=== PATIENT | female | born 1995 | race Hispanic/Latino ===

== ENCOUNTER 2020-03-28 09:04 | Day surgery (SDC) | payer MEDICAID, OTHER ==
[2020-03-28 09:52] VITALS: BMI 30.4
--- NOTE | 2020-03-28 10:52 | PDOC.FPROB ---
FMR OB H&P: HPI - History of Present Illness Chief Complaint: contractions History of Present Illness: Pt is a 25 yo F at 39.2 wga by a LMP/35 wk sono who presents complaining of contractions. As per patient, contractions started around 2300 last night and were about 3-4 minutes apart. Now she states they are 10-15 minutes apart and feel like cramps. She also endorses a very small amount of vaginal bleeding she noticed when she went to wipe this morning. She endorses good movement, no vaginal discharge, no dysuria. 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 - Surgical History Sx History: denies - Social History Social History: denies tobacco, alcohol or drug use - Family History Family History: denies FMR OB H&P: Medications - Current Home Medications: Medication Instructions Recorded Confirmed Type Vit,Calc76/Iron/Folic 1 tab PO DAILY 03/28/20 03/28/20 History [Prenatabs Rx Tablet] Allergies/Adverse Reactions: Allergies Allergy/AdvReac Type Severity Reaction Status Date / Time No Known Allergies Allergy Unverified 03/28/20 09:53 FMR OB H&P: ROS - Review of Systems General: denies: fever/chills Eyes: denies: vision changes Cardiovascular: denies: chest pain Respiratory: denies: cough, shortness of breath Gastrointestinal: denies: vomiting Genitourinary (Female): reports: vaginal bleeding, contractions. denies: vaginal discharge, vaginal pressure Neurologic: denies: weakness, headache FMR OB H&P: Vital Signs - Maternal Vital signs: BP: 108/78 - Heart Tones Baseline: 130 Variability: moderate Acceleration: present Deceleration: absent Category: category 1 [place] contractions every: irregular FMR OB H&P: Physical Exam - Physical Exam General: NAD, awake, alert and oriented HEENT: normocephalic and atraumatic, EOMI, MMM Neck: supple Heart: RRR, normal S1/S2 General: CTAB, no respiratory distress Abdomen: soft, gravid Neurological: no clonus, no focal deficit Skin: no rash, good tugor Psychiatric: intact recent and remote memory, good judgement and insight, normal mood and affect - Pelvic Exam SVE: Membranes: intact FMR OB H&P: A/P Disposition: Pt is a 25 yo F at 39.2 wga by a LMP/35 wk sono who presents complaining of contractions 1. Contractions -patient endorsing "cramping"/ctx q 10-15 min, resting comfortably -irregular contractions on toco -cat 1 strip 130 baseline with moderate variability and no decels -cervical check 2. Vaginal bleeding -patient complained of a small amount of vaginal blood after wiping earlier this morning -scant amount of blood after cervical check noted -likely 2/2 cervical change 3. Late to care -aware -poor dating by 35 wk sono -patient scheduled for post date IOL on 04/12/20 4. Anemia of -aware At this time, patient is not regularly jayson and is comfortable. Given this fact and her being a G1, will send home with labor precautions given. Return to L&D if contractions increase in intensity to where it hurts to walk and talk and occur every 3-5 minutes for an hour, if water breaks, you detect decreased movement or if vaginal bleeding increases. Discussion: Date/Time: 03/28/20 105 This H&P was discussed with Dr. Luevano and Dr. Burdick who agree with the above documentation and plan. Addendum - Attending - Attending Attestation Date/Time: 03/28/20 1255 I personally evaluated the patient and discussed the management with Dr. Fagan. I agree with the History, Examination, Assessment and Plan documented above.
== END 2020-03-28 10:45 | disposition home health service (06) ==
LOC: L&D/OP 09:04
PROVIDERS: ATTEND Obstetrics & Gynecology
DX: O47.1 False labor at or after 37 completed weeks of gestation (principal); O46.93 Antepartum hemorrhage, unspecified, third trimester; O99.013 Anemia complicating pregnancy, third trimester; D64.9 Anemia, unspecified; O09.33 Supervision of pregnancy with insufficient antenatal care, third trimester; Z3A.39 39 weeks gestation of pregnancy
CPT/HCPCS: 99283

== ENCOUNTER 2020-04-07 10:32 | Inpatient (IN) | payer MEDICAID, SELFPAY ==
[2020-04-07 11:23] VITALS: BMI 25.5
[2020-04-07] MEDS ORDERED: hydrALAZINE 20 MG/ML VIAL SLOW IVP PRN (12:07)
--- NOTE | 2020-04-07 12:19 | PDOC.FPROB ---
FMR OB H&P: HPI - History of Present Illness Chief Complaint: decreased movement History of Present Illness: 25 y/o at 40.5 wks by LMP/35.0 wk sono presenting for decreased movement. Reports decreased movement since last night, feeling baby move approximately every 2 hours. Reports she was seen at [facility] this AM and told to come in if symptoms persisted. She denies any LOF, vaginal bleeding, contractions. Endorses some clear/mucus discharge from the vagina which is usual for her. She has been eating and drinking normally. Denies malaise, fever, chills, dysuria, urinary frequency. has been complicated by late to care at 33 wks. She takes PNV, no other medications, and denies any other complications with this . She did have SVE today and reports she was dilated to 2 cm, unsure of rest of check and C records not yet sent. 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 - Surgical History Sx History: denies previous surgeries - Social History Social History: denies etoh, tobacco, drug use - Family History Family History: denies any family history including htn, dm, autism, down syndrome FMR OB H&P: Medications - Current Home Medications: Medication Instructions Recorded Confirmed Type Vit,Calc76/Iron/Folic 1 tab PO DAILY 03/28/20 03/28/20 History [Prenatabs Rx Tablet] Allergies/Adverse Reactions: Allergies Allergy/AdvReac Type Severity Reaction Status Date / Time No Known Allergies Allergy Unverified 04/07/20 11:22 FMR OB H&P: ROS - Review of Systems General: denies: fever/chills, weight/appetite/sleep changes, fatigue Eyes: denies: vision changes, scotomas ENT: denies: nasal congestion, rhinorrhea, sore throat Cardiovascular: denies: chest pain, palpitation, edema Respiratory: denies: cough, congestion, shortness of breath Gastrointestinal: denies: abdominal pain, nausea, vomiting, diarrhea, constipation Genitourinary (Female): denies: dysuria, hematuria, polyuria, vaginal discharge, vaginal bleeding, contractions, vaginal pressure Musculoskeletal: denies: pain Neurologic: denies: numbness, headache Integumentary: denies: rash Endocrine: denies: polyuria Psychological: denies: depression, anxiety FMR OB H&P: Vital Signs - Maternal Vital signs: Vital Signs - First Documented Temp Pulse Resp BP Pulse Ox 98.1 F 74 18 105/74 100 04/07/20 11:33 04/07/20 11:33 04/07/20 11:33 04/07/20 11:33 04/07/20 11:33 - Heart Tones Baseline: 125 Variability: moderate Acceleration: present Deceleration: absent Category: category 1 [place] contractions every: > 10 min FMR OB H&P: Physical Exam - Physical Exam General: NAD, awake, alert and oriented HEENT: normocephalic and atraumatic, MMM, conjunctiva clear, no scleral icterus, grossly normal vision, grossly normal hearing, good dention Neck: supple, no LAD Heart: RRR, normal S1/S2, no murmurs/rubs/gallops, pulses present, no edema General: CTAB, no respiratory distress Abdomen: soft, gravid, non-tender Musculoskeletal: pulses present Neurological: sensation to pain,touch and proprioception grossly normal, DTR +2, no clonus Skin: no rash Lymphatic: no unusual bruising or bleeding Psychiatric: intact recent and remote memory, good judgement and insight, normal mood and affect - Pelvic Exam SVE: 1/0/-3 Membranes: intact Presentation: cephalic ROT FMR OB H&P: A/P Disposition: sIUP, term @ 40.5 wks 25 y/o at 40.5 wks by LMP/35 wk US - ortiz, cephalic on sono - complicated by late to care - GBS negative - SVE @ 1245 1/0/-3 Oligohydramnios With reported decreased movement. FARZANA 3.68 on bedside sono. NST reactive. - will plan to admit for induction due to oligo Anemia of Taking PNV , not on oral iron. - check H/H with induction labs Discussion: Date/Time: 04/07/20 1216 This H&P was discussed with [] and [] who agree with the above documentation and plan.
[2020-04-07] MEDS ORDERED: Lidocaine 2% MPF 10 ML AMP (For Epidural Use) ONE (12:55)
[2020-04-07] MEDS ORDERED: Bupivacaine/Epinephrine 0.25% 30 ML VIAL ONE (12:55)
[2020-04-07] MEDS ORDERED: Bupivacaine HCl 0.5%/Epinephrine 1:200,000/PF 30 ml Vial ONE (12:55)
[2020-04-07] MEDS ORDERED: Ibuprofen 800 MG TAB PO PRN (12:56)
[2020-04-07] MEDS ORDERED: Lidocaine 1% (PF) 30 ML VIAL SC PRN (12:56)
[2020-04-07] MEDS ORDERED: Butorphanol Tartrate 1 MG/ML VIAL SLOW IVP PRN (12:56)
[2020-04-07] MEDS ORDERED: Promethazine HCl 25 MG/ML VIAL IM PRN ×2 (12:56→23:26)
[2020-04-07] MEDS ORDERED: Acetaminophen 500 MG TAB PO PRN (12:56)
[2020-04-07] MEDS ORDERED: NS / Oxytocin 40 units/1000ml 1,000 ML IV PRN (12:56)
[2020-04-07 13:28] LABS: Hemoglobin 12.6 g/dL (12.0-16.0); Mean Corpuscular HGB CONC 34.5 g/dL (32.0-36.0); Mean Corpuscular Hemoglobin 30.5 pg (27.0-31.0); Mean Corpuscular Volume 88.4 fL (78.0-98.0); Mean Platelet Volume 10.7 fL (7.4-10.4); Platelet Count 153 thou/uL (130-400); RBC Distribution Width 13.3 % (11.5-14.5); Red Blood Cell (RBC) Count 4.13 mill/uL (4.20-5.40); White Blood Cell (WBC) Count 7.6 thou/uL (4.8-10.8)
--- NOTE | 2020-04-07 14:01 | PDOC.BPN ---
- Brief Progress Note Encounter Date: 04/07/20 Encounter Time: 13:00 FARZANA by bedside sono 3.68. NST reactive. SVE 1/0%/-3. Admitting for cytotec IOL for oligohydramnios. Discussed with Dr. Foss. Fabiola Abraham MD PGY3
[2020-04-07 14:07] LABS: Syphilis Antibody Nonreactive (Nonreactive); Syphilis Antibody Index 0.05 S/CO (<1.00 Non-Reactive)
[2020-04-07 14:11] LABS: Hep B Surf Ag Non-Reactive S/CO (NonReactive)
[2020-04-07] MEDS: Lactated Ringer's 1,000 ML IV SCH ×2 (15:27→21:19)
--- NOTE | 2020-04-07 16:24 | PDOC.LDPN ---
Labor & Delivery Progress Note - Subjective Subjective: comfortable - Objective Vital signs reviewed and normal: yes General: NAD, resting Uterine fundus: non tender FHT: category 1 (135 baseline, with mod variability and many acels. No decels. ) [place] contractions every: none observed - Assessment (1) Oligohydramnios Code(s): O41.00X0 - OLIGOHYDRAMNIOS, UNSP TRIMESTER, NOT APPLICABLE OR UNSP Current Visit: Yes Status: Acute (2) Term Code(s): Z34.90 - ENCNTR FOR SUPRVSN OF NORMAL , UNSP, UNSP TRIMESTER Current Visit: Yes Status: Acute Plan: labor augmentation -: 25 y/o @ 40.5 wks dated by 35 wk sono c/w LMP, admitted for mIOL for oligohydrmanios. 1. sIUP, term @ 40.5 wks - cephalic on sono - complicated by late to care and suboptimal dating. - GBS negative - SVE @ 1245 1/0/-3 - cytotec to be placed soon placed, then check Q3H, and place cytotec/start pit as appropriate 2. Oligohydramnios - With reported decreased movement on admission that has improved overtime. FARZANA 3.68 on bedside sono. NST reactive. 3. Anemia of - improved - H/H: 12.6/34.5 Dispo: stable, continue mIOL with cytotec induction.
[2020-04-07] MEDS: Misoprostol 100 MCG TAB VAG SCH ×3 (17:33→21:16)
--- NOTE | 2020-04-07 18:18 | PDOC.LDPN ---
Labor & Delivery Progress Note - Subjective Subjective: comfortable, no concerns - Objective Vital signs reviewed and normal: yes General: NAD, resting Uterine fundus: non tender SVE: 1/0/-3 Dilation: 1 Effacement: 0% Station: -3 FHT: category 1, variability present [employer] contractions every: none Plan: continue plan of care, labor augmentation -: 25 y/o @ 40.5 wks dated by 35 wk sono c/w LMP, admitted for mIOL for oligohydrmanios. 1. sIUP, term @ 40.5 wks - cephalic on sono - complicated by late to care and suboptimal dating. - GBS negative - SVE @ 1245 1/0/-3 - SVE @ 1730 /0/-3, cytotec placed, cat 1 - next check 2029 2. Oligohydramnios - With reported decreased movement on admission that has improved overtime. FARZANA 3.68 on bedside sono. NST reactive. 3. Anemia of - improved - H/H: 12.6/34.5 Dispo: stable, continue mIOL with cytotec induction.
--- NOTE | 2020-04-07 21:17 | PDOC.LDPN ---
Labor & Delivery Progress Note - Subjective Subjective: comfortable - Objective Vital signs reviewed and normal: yes General: NAD, resting SVE: /-1 Dilation: 1 Effacement: 75% Station: -1 FHT: category 1, variability present [place] contractions every: 5-6 minutes Plan: continue plan of care, labor augmentation -: 25 y/o @ 40.5 wks dated by 35 wk sono c/w LMP, admitted for mIOL for oligohydrmanios. 1. sIUP, term @ 40.5 wks - cephalic on sono - complicated by late to care and suboptimal dating. - GBS negative - SVE @ 1245 1/0/-3 - SVE @ 1730 /0/-3, cytotec placed, cat 1 - SVE @ 2110 /-1, cytotec #2 placed, cat 1 - next check at 0015 2. Oligohydramnios - With reported decreased movement on admission that has improved overtime. FARZANA 3.68 on bedside sono. NST reactive. 3. Anemia of - improved - H/H: 12.6/34.5 Dispo: stable, continue mIOL with cytotec induction.
[2020-04-07] MEDS ORDERED: Fentanyl 4 mcg/Bup 0.1% Cadd 100 ML ONE (22:47)
[2020-04-07] MEDS ORDERED: diphenhydrAMINE 50 MG/ML VIAL IVP PRN (23:26)
[2020-04-07] MEDS ORDERED: EPHEDRINE 25 MG/5 ML SYRINGE SLOW IVP PRN (23:26)
[2020-04-07] MEDS ORDERED: Acetaminophen 325 MG TAB PO PRN (23:26)
[2020-04-07] MEDS ORDERED: Naloxone HCl 0.4 mg/ml Vial IVP PRN ×2 (23:26)
[2020-04-07] MEDS ORDERED: Ondansetron PF 4 MG/2 ML Vial IVP PRN (23:26)
[2020-04-07] MEDS ORDERED: Lactated Ringer's 500 ML IV PRN (23:26)
[2020-04-07] MEDS ORDERED: Communication Order-Pharmacy FS SCH (23:30)
--- NOTE | 2020-04-08 00:19 | PDOC.LDPN ---
Labor & Delivery Progress Note - Subjective Subjective: comfortable - Objective Vital signs reviewed and normal: yes General: NAD, resting SVE: 80/-1 Dilation: 2 Effacement: 75% Station: -1 FHT: category 1, variability present [place] contractions every: 1-2 minutes Plan: continue plan of care, labor augmentation -: 25 y/o @ 40.6 wks dated by 35 wk sono c/w LMP, admitted for mIOL for oligohydrmanios. 1. sIUP, term @ 40.5 wks - cephalic on sono - complicated by late to care and suboptimal dating. - GBS negative - SVE @ 1245 1/0/-3 - SVE @ 1730 1/0/-3, cytotec placed, cat 1 - SVE @ 2110 80/-1, cytotec #2 placed, cat 1 - SVE @ midnight 80/-1, cat 1, contractions 1-2 min - next check at 0230 2. Oligohydramnios - With reported decreased movement on admission that has improved overtime. FARZANA 3.68 on bedside sono. NST reactive. 3. Anemia of - improved - H/H: 12.6/34.5 Dispo: stable, continue mIOL
--- NOTE | 2020-04-08 02:43 | PDOC.LDPN ---
Labor & Delivery Progress Note - Subjective Subjective: comfortable - Objective Vital signs reviewed and normal: yes General: NAD, resting Uterine fundus: non tender SVE: /-1 Dilation: 3 Effacement: 90% Station: -1 FHT: category 1, variable decelerations, variability present [place] contractions every: 1-2 minutes Plan: continue plan of care -: 25 y/o @ 40.6 wks dated by 35 wk sono c/w LMP, admitted for mIOL for oligohydrmanios. 1. sIUP, term @ 40.5 wks - cephalic on sono - complicated by late to care and suboptimal dating. - GBS negative - SVE @ 1245 1/0/-3 - SVE @ 1730 1/0/-3, cytotec placed, cat 1 - SVE @ 2110 80/-1, cytotec #2 placed, cat 1 - SVE @ midnight 80/-1, cat 1, contractions 1-2 min, epidural - SVE @ 0230 /-1, cat 1, contractions 1-2 min - next check at 0630 2. Oligohydramnios - With reported decreased movement on admission that has improved overtime. FARZANA 3.68 on bedside sono. NST reactive. 3. Anemia of - improved - H/H: 12.6/34.5 Dispo: stable, continue mIOL
[2020-04-08] MEDS ORDERED: Fentanyl 4 mcg/Bup 0.1% Cadd 100 ML ONE ×2 (05:43→11:15)
--- NOTE | 2020-04-08 05:45 | PDOC.LDPN ---
Labor & Delivery Progress Note - Subjective Subjective: comfortable, painful contractions, vaginal pressure - Objective Vital signs reviewed and normal: yes General: NAD, breathing through contractions SVE: /-1 Dilation: 5 Effacement: 90% Station: -1 FHT: category 1, variability present [place] contractions every: 2-4 min Procedures: epidural bolus Plan: continue plan of care -: 25 y/o @ 40.6 wks dated by 35 wk sono c/w LMP, admitted for mIOL for oligohydrmanios. 1. sIUP, term @ 40.5 wks - cephalic on sono - complicated by late to care and suboptimal dating. - GBS negative - SVE @ 1245 1/0/-3 - SVE @ 1730 /0/-3, cytotec placed, cat 1 - SVE @ 2110 /-1, cytotec #2 placed, cat 1 - SVE @ midnight /-1, cat 1, contractions 1-2 min, epidural - SVE @ 0230 /-1, cat 1, contractions 1-2 min - SVE @ 0515 /-1, cat 1, contractions 2-4 min, epidural bolus @ 0540 - next check in 2-3 hours 2. Oligohydramnios - With reported decreased movement on admission that has improved overtime. FARZANA 3.68 on bedside sono. NST reactive. 3. Anemia of - improved - H/H: 12.6/34.5 Dispo: stable, continue mIOL
[2020-04-08] MEDS: Ondansetron PF 4 MG/2 ML Vial IVP PRN ×2 (05:48→11:34)
[2020-04-08] MEDS: Fentanyl 4 mcg/Bupivacaine 0.1% Cassette 100 ML EPIDURAL SCH ×2 (05:48→11:21)
[2020-04-08] MEDS: Lactated Ringer's 1,000 ML IV SCH ×2 (05:52→10:25)
--- NOTE | 2020-04-08 07:48 | PDOC.LDPN ---
Labor & Delivery Progress Note - Subjective Subjective: comfortable - Objective Vital signs reviewed and normal: yes General: NAD SVE: 5/100/-1 FHT: category 1 AROM: clear fluid FSE placed: yes -: 25 y/o @ 40.6 wks dated by 35 wk sono c/w LMP, admitted for mIOL for oligohydrmanios. 1. sIUP, term @ 40.5 wks - cephalic on sono - complicated by late to care and suboptimal dating. - GBS negative - SVE @ 1245 1/0/-3 - SVE @ 1730 1/0/-3, cytotec placed, cat 1 - SVE @ 2110 80/-1, cytotec #2 placed, cat 1 - SVE @ midnight 80/-1, cat 1, contractions 1-2 min, epidural - SVE @ 0230 90/-1, cat 1, contractions 1-2 min - SVE @ 0515 /90/-1, cat 1, contractions 2-4 min, epidural bolus @ 0540 - SVE @ 0715 5/100/-1, AROM w/ small amt clear fluid, FSC placed - recheck in 2-3 hrs 2. Oligohydramnios - With reported decreased movement on admission that has improved overtime. FARZANA 3.68 on bedside sono. NST reactive. 3. Anemia of - improved - H/H: 12.6/34.5 Dispo: stable, continue mIOL Discussed with Dr. Foss.
--- NOTE | 2020-04-08 10:34 | PDOC.LDPN ---
Labor & Delivery Progress Note - Subjective Subjective: comfortable - Objective Vital signs reviewed and normal: yes General: NAD SVE: 9/100/+1 FHT: category 1, variability present [place] contractions every: q2-6 min -: 25 y/o @ 40.6 wks dated by 35 wk sono c/w LMP, admitted for mIOL for oligohydrmanios. 1. sIUP, term @ 40.5 wks - cephalic on sono - complicated by late to care and suboptimal dating. - GBS negative - SVE @ 1245 1/0/-3 - SVE @ 1730 1/0/-3, cytotec placed, cat 1 - SVE @ 2110 80/-1, cytotec #2 placed, cat 1 - SVE @ midnight 80/-1, cat 1, contractions 1-2 min, epidural - SVE @ 0230 90/-1, cat 1, contractions 1-2 min - SVE @ 0515 /90/-1, cat 1, contractions 2-4 min, epidural bolus @ 0540 - SVE @ 0715 5/100/-1, AROM w/ small amt clear fluid, FSC placed - was removed due to not tracing well; reattempted placement but did not stay on, tracing well through external monitors - SVE 1015 9/100/+1, ctx q2-6, now cat 1 strip 140/mod/+accels, intermittent cat 2 strip with few scattered variables and one possible decel in area of poor tracing - recheck in 2 hrs 2. Oligohydramnios - With reported decreased movement on admission that has improved overtime. FARZANA 3.68 on bedside sono. NST reactive. 3. Anemia of - improved - H/H: 12.6/34.5 Dispo: stable, continue mIOL Discussed w/ Dr. Mccullough.
--- NOTE | 2020-04-08 14:01 | PDOC.BPN ---
- Brief Progress Note Encounter Date: 04/08/20 Encounter Time: 14:[address] Mccullough is in the OR. @ 40w6d by suboptimal dates. She has progressed to c/c/+[address] FHTs cat 1, mod tracey, + accels, no decels [place] q2-4 min SVE: c/c/+1, ROP BSUS confirmed ROP Gentle attempt at manual rotation of obtaining verbal consent from patient (photo tube assembler offered and encouraged but declined), which was unsuccessful. Can try hands-knees for short period, then resume pushing. If no significant progress attempt manual rotation again after bolusing epidural as she had discomfort during first attempt.
[2020-04-08 14:52] LABS: SARS-CoV-2 MS2 Positive; SARS-CoV-2 N Gene Negative; SARS-CoV-2 S Gene Negative; SARS-CoV-2 by NAA Not Detected (NotDetected); SARS-CoV-2 orf1ab Negative
--- NOTE | 2020-04-08 15:24 | PDOC.LDPN ---
Labor & Delivery Progress Note - Subjective Subjective: painful contractions - Objective Vital signs reviewed and normal: yes General: breathing through contractions SVE: 10/100/+1 FHT: category 2, variable decelerations -: 25 y/o @ 40.6 wks dated by 35 wk sono c/w LMP, admitted for mIOL for oligohydrmanios. 1. sIUP, term @ 40.5 wks - cephalic on sono - complicated by late to care and suboptimal dating. - GBS negative - SVE @ 1245 1/0/-3 - SVE @ 1730 1/0/-3, cytotec placed, cat 1 - SVE @ 2110 80/-1, cytotec #2 placed, cat 1 - SVE @ midnight /-1, cat 1, contractions 1-2 min, epidural - SVE @ 0230 90/-1, cat 1, contractions 1-2 min - SVE @ 0515 /90/-1, cat 1, contractions 2-4 min, epidural bolus @ 0540 - SVE @ 0715 5/100/-1, AROM w/ small amt clear fluid, FSE placed - was removed due to not tracing well; reattempted placement but did not stay on, tracing well through external monitors - SVE 1015 9/100/+1, ctx q2-6, now cat 1 strip 140/mod/+accels, intermittent cat 2 strip with few scattered variables and one possible decel in area of poor - 10/100/+1 since 1200, pushing started 1415, intermittently cat 2 140/mod with one period of 3 variables over 10 min with pushes - continue monitoring, continue pushing, consider further attempts to rotate baby as ROP on US earlier and not progressing 2. Oligohydramnios - With reported decreased movement on admission that has improved overtime. FARZANA 3.68 on bedside sono. NST reactive. 3. Anemia of - improved - H/H: 12.6/34.5
[2020-04-08] MEDS ORDERED: Azithromycin 500 MG VIAL ONE ×2 (16:51→17:06)
[2020-04-08] MEDS ORDERED: Bicitra 30 ML UDCUP ONE (16:52)
--- NOTE | 2020-04-08 16:52 | PDOC.LDPN ---
Labor & Delivery Progress Note - Subjective Subjective: painful contractions, vaginal pressure - Objective Vital signs reviewed and normal: yes General: NAD Uterine fundus: non tender Dilation: 10 Effacement: 100% Station: 0 FHT: category 2 (moderate variability, occasional variable decelerations. ) [place] contractions every: 2-3 min Plan: other -: Patient has been complete since 12:00 today. Has been pushing with good effort for the past 3 hours. We discussed risks and benefits of continuing current plan of labor and the possible need for section. The patient considered her options and states that she is too fatigued to continue pushing. She elected to go back for section due to failure to progress despite adequate effort. She understands the risks and benefits of section and wants to proceed. This plan was discussed with Dr. Mccullough, attending. Bradley NIELSEN PGY2
[2020-04-08] MEDS ORDERED: CEFAZOLIN 2 GM in Premix Bag 1 BAG IVPB SCH (17:00)
[2020-04-08] MEDS ORDERED: Azithromycin 500 MG in Sodium Chloride 0.9% 250 ML 250 ML IVPB SCH (17:00)
[2020-04-08] MEDS ORDERED: Oxytocin 10 UNITS/ML VIAL ONE ×2 (17:12→17:36)
[2020-04-08] MEDS ORDERED: Fentanyl 100 MCG/2 ML VIAL ONE (17:12)
[2020-04-08] MEDS ORDERED: Dexamethasone 4 mg/ml Vial ONE (17:12)
[2020-04-08] MEDS ORDERED: PHENYLEPHRINE-NS 100 MCG/ML 10 ML SYRINGE ONE (17:12)
[2020-04-08] MEDS ORDERED: Ketorolac Tromethamine 30 MG/ML VIAL ONE (17:12)
[2020-04-08] MEDS ORDERED: ePHEDrine 50 MG/ML VIAL ONE (17:12)
[2020-04-08] MEDS ORDERED: Morphine PF 10 MG/10 ML VIAL ONE (17:12)
[2020-04-08] MEDS ORDERED: Ondansetron PF 4 MG/2 ML Vial ONE ×2 (17:13→20:45)
[2020-04-08] MEDS ORDERED: Bicitra 30 ML UDCUP PO SCH (17:15)
[2020-04-08] MEDS ORDERED: Lidocaine 2% 10 ML INJ ONE (17:29)
[2020-04-08] MEDS ORDERED: Midazolam HCl 2 mg/2 ml Vial ONE (17:35)
[2020-04-08 17:55] LABS: Actual Bicarbonate (HCO3v) 20 mEq/L (22-28); Base Excess -6.6 mEq/L (-2.0 to +3.0); pH (Cord, venous) 7.29 (7.32-7.43)
--- NOTE | 2020-04-08 18:35 | OP ---
DATE OF PROCEDURE: 04/08/2020 TIME OF SERVICE: Approximately 1530. PREOPERATIVE DIAGNOSES: Term labor, persistent occiput posterior presentation, arrest of descent at complete, complete and +1 station. POSTOPERATIVE DIAGNOSES: Term labor, persistent occiput posterior presentation, arrest of descent at complete, complete and +1 station, thick meconium noted in the oropharynx. PROCEDURE PERFORMED: Primary low-transverse section with left lower uterine segment extension. YARDAGE ESTIMATOR: Renita Mariee MD ANESTHESIA: Epidural. ANESTHESIOLOGIST: Jaylen Chirinos MD. MEDICATIONS: 2 g Ancef and 500 Zithromax pre-incision. DVT PROPHYLAXIS: SCDs. DRAINS: Johnson to gravity. COMPLICATIONS: None. QBL: Pending. EBL: Approximately 1000 to 1200 mL. OPERATIVE FINDINGS: 1. Deep occiput posterior arrest, female infant to nursery, weight and Apgars pending. 2. Extension of hysterotomy into left lower uterine segment cervix, repaired. 3. Hemostasis, clear urine. COUNTS: Correct at the end of the procedure. DISPOSITION: Recovery room in good condition. DESCRIPTION OF PROCEDURE: The patient was taken to the operating room, where epidural was dosed to appropriate level. She was prepped and draped in the usual manner. The head was disengaged with gentle upward traction by the operating physician prior to draping the patient. Marked caput was noted. A skin incision was made in a Pfannenstiel manner, carried down the fascia in midline, extended superiorly and laterally with curved Fontaine scissors. Rectus was dissected off sharply superiorly and inferiorly, divided in midline. Peritoneum entered bluntly to avoid trauma to the underlying viscera. Will O retractor was placed inside. Vesicouterine peritoneal fold noted to be quite high on the uterus secondary to the patient's advanced cervical dilatation and long labor. Low-transverse hysterotomy was made just above the level of the vesicouterine peritoneal fold and extended superiorly and laterally with finger fractionation. Surgeon's hand was placed into the hysterotomy. The was noted to be quite deep in the pelvis. It was disengaged and brought up and through the hysterotomy and persistent occiput posterior presentation. Rest of the infant delivered. Cord clamped and cut and handed off to the team in attendance. Usual cord blood sample obtained after cord gas and placenta was then removed manually. The uterus was exteriorized. Hysterotomy was noted to have a left-sided hockey-stick extension down into the cervix and lower uterine segment, it was noted to be medial to the uterine vessels. It was identified along its margins and sutured at its distal apex with #1 Monocryl, which was continued up in a running locking manner up to the level of the hysterotomy and then run across the uterus. The hysterotomy was then closed in a second layer starting on the patient's right and extending all the way over onto the left. Good hemostasis was noted and suction irrigation was carried out. Inspection of the posterior aspect of the uterus revealed there to be no windows in the peritoneum posteriorly and no injury posteriorly. Good hemostasis was noted to the area of the uterine extension, but because of its deep nature, decision was made to go ahead and place FloSeal that was placed and moist lap sponge held against it for 3 minutes. Good hemostasis noted afterwards. At this point time, the Will O retractor was then removed. The rectus was inspected and noted to be dry. The fascia reapproximated using 0 PDS suture x2. Subcutaneous tissue irrigated, rendered hemostatic with Bovie cautery, reapproximated using 2-0 plain gut. Skin reapproximated using 4-0 Monocryl and Dermabond, and the patient entered into routine care. Job ID: [id number]
[2020-04-08] MEDS ORDERED: Promethazine HCl 25 MG SUPP PR PRN (18:38)
[2020-04-08] MEDS ORDERED: Naloxone HCl 0.4 mg/ml Vial IVP PRN ×2 (18:38)
[2020-04-08] MEDS ORDERED: Promethazine HCl 25 MG/ML VIAL IM PRN ×2 (18:38→21:54)
[2020-04-08] MEDS ORDERED: diphenhydrAMINE 50 MG/ML VIAL IVP PRN (18:38)
[2020-04-08] MEDS ORDERED: HYDROmorphone 2 MG/ML VIAL SLOW IVP PRN (18:38)
[2020-04-08] MEDS ORDERED: Naloxone HCl 0.4 mg/ml Vial IV PRN (18:38)
[2020-04-08] MEDS ORDERED: L&D-Morphine 4 MG/ML VIAL SLOW IVP PRN (18:38)
[2020-04-08] MEDS ORDERED: Ondansetron HCl/PF 4 MG/2 ML Vial IVP PRN (18:38)
[2020-04-08] MEDS ORDERED: Meperidine HCl/PF 25 MG/ML VIAL SLOW IVP PRN (18:38)
[2020-04-08] MEDS ORDERED: Ondansetron PF 4 MG/2 ML Vial IVP PRN ×2 (18:38→21:54)
[2020-04-08] MEDS ORDERED: Communication Order-Pharmacy FS SCH (18:45)
[2020-04-08] MEDS ORDERED: Ketorolac Tromethamine 30 MG/ML VIAL IVP SCH (18:45)
[2020-04-08] MEDS ORDERED: Misoprostol 200 MCG TAB PR PRN (21:54)
[2020-04-08] MEDS ORDERED: Lanolin Ointment 7 GM TUBE TOP PRN (21:54)
[2020-04-08] MEDS ORDERED: Methylergonovine 0.2 MG/ML VIAL IM PRN (21:54)
[2020-04-08] MEDS ORDERED: hydrALAZINE 20 MG/ML VIAL SLOW IVP PRN (21:54)
[2020-04-08] MEDS ORDERED: HYDROcodone/Acetaminophen 5/325 mg Tablet PO PRN ×2 (21:54)
[2020-04-08] MEDS ORDERED: Simethicone Chewable 80 MG TAB PO PRN (21:54)
[2020-04-08] MEDS ORDERED: diphenhydrAMINE 25 MG CAP PO PRN (21:54)
[2020-04-08] MEDS ORDERED: Docusate Calcium (SURFAK) 240 MG CAP PO SCH (22:15)
--- NOTE | 2020-04-08 23:21 | PDOC.BPN ---
- Brief Progress Note Encounter Date: 04/08/20 Encounter Time: 23:00 4hour post-op S: Denies pain, appropriate bleeding, reports she has been trying to feed baby O: VS wnl RRR CTAB soft, appropriately tender, fundus firm and below umbilicus, incision clean and dry pLTC -Continue routine care
[2020-04-08] MEDS: Ketorolac Tromethamine 30 MG/ML VIAL IVP PRN (23:32)
[2020-04-09] MEDS: Misoprostol 100 MCG TAB VAG SCH ×2 (01:16→01:17)
[2020-04-09] MEDS: Lactated Ringer's 1,000 ML IV SCH (01:17)
[2020-04-09] MEDS: Ketorolac Tromethamine 30 MG/ML VIAL IVP PRN (05:36)
--- NOTE | 2020-04-09 07:47 | PDOC.PP ---
Post Progress Note Post Day #: 1 Subjective: patient is doing well this morning. She still has edwards catheter. has not ambulated. she denies abdominal pain, significant vaginal bleeding, headache, nausea, vomiting. She complains of mild itchiness. PO intake tolerated: yes Flatus: no Ambulation: no Vital Signs (12 hours) Temp Pulse Resp BP Pulse Ox 04/09/20 05:35 98.5 F 88 16 100/56 L 04/08/20 23:30 98.8 F 73 16 119/72 04/08/20 21:50 99.3 F 62 16 120/61 98 Weight Weight 73.936 kg - Physical Examination General: NAD Cardiovascular: no m/r/g, RRR Respiratory: clear to auscultation bilaterally, non-labored breathing Abdominal: + bowel sounds, lochia, no distention, appropriately TTP Skin: CS incision dry & intact, no rash Psychiatric: A&Ox3, normal affect Result Diagrams: 04/07/20 13:21 Additional Labs: Post Labs Hep Bs Antigen Non-Reactive S/CO (NonReactive) 04/07/20 13:21 Blood Type O POSITIVE 04/07/20 13:50 (1) Term delivered Code(s): O80 - ENCOUNTER FOR FULL-TERM UNCOMPLICATED DELIVERY Status: Acute (2) Status post section Code(s): Z98.891 - HISTORY OF UTERINE SCAR FROM PREVIOUS SURGERY Status: Acute (3) Oligohydramnios Code(s): O41.00X0 - OLIGOHYDRAMNIOS, UNSP TRIMESTER, NOT APPLICABLE OR UNSP Status: Acute - Assessment/Plan PPD #1, s/p 04/08/2020. - Routine recovery. - Remove edwards, encourage ambulation. - Encourage breast pumping between feeds. - Pending H&H this morning. Late to care Oligohydramnios
[2020-04-09] MEDS: Prenatal Vitamin 1 TAB PO SCH (08:28)
[2020-04-09] MEDS: Docusate Calcium (SURFAK) 240 MG CAP PO SCH ×2 (08:28→23:02)
[2020-04-09 08:53] LABS: Hemoglobin 9.8 g/dL (12.0-16.0); Mean Corpuscular Hemoglobin 31.3 pg (27.0-31.0); Mean Corpuscular Volume 89.4 fL (78.0-98.0); RBC Distribution Width 13.2 % (11.5-14.5); Red Blood Cell (RBC) Count 3.13 mill/uL (4.20-5.40)
[2020-04-09] MEDS ORDERED: Adacel (T-DAP) 0.5 ML SYRINGE IM ONE (09:00)
[2020-04-09 09:17] LABS: Mean Platelet Volume 10.4 fL (7.4-10.4); Platelet Count 114 thou/uL (130-400)
[2020-04-10] MEDS: Ibuprofen 800 MG TAB PO SCH ×2 (02:56→08:54)
[2020-04-10] MEDS ORDERED: Ibuprofen 800 MG TAB PO SCH (06:00)
[2020-04-10 06:19] VITALS: TEMP 98.5
--- NOTE | 2020-04-10 06:28 | PDOC.PP ---
Post Progress Note Post Day #: 2 Subjective: Feeling well, pain is well controlled, needed 1 norco overnight. Eating, voiding, passing flatus. Minimal lochia. She is concerned that her name was spelled wrong on the baby's certificate. She also needs paperwork signed for emergency CHIP. PO intake tolerated: yes Flatus: yes Ambulation: yes Vital Signs (12 hours) Temp Pulse Resp BP Pulse Ox 04/09/20 20:00 98.5 F 82 18 121/63 100 Weight Weight 73.936 kg - Physical Examination General: NAD Cardiovascular: no m/r/g, RRR Respiratory: clear to auscultation bilaterally, non-labored breathing Abdominal: lochia (minimal), no distention, appropriately TTP Skin: CS incision dry & intact, no rash Neurological: no gross focal deficits Psychiatric: A&Ox3, normal affect Result Diagrams: 04/09/20 06:12 Additional Labs: Post Labs Hep Bs Antigen Non-Reactive S/CO (NonReactive) 04/07/20 13:21 Blood Type O POSITIVE 04/07/20 13:50 - Assessment/Plan PPD #2, s/p 04/08/2020 for arrest of descent. L lower uterine seg extension in CS. - ambulating, voiding, passing flatus, eating. Minimal lochia, pain well controlled. - uterus firm below umbilicus, appropriately TTP - CS dry and intact - sending rx for pain medications and bowel regimen - f/up PNC in 1 week, DC today Anemia -Hgb 9.8 from 12.6 -PO fe Daily Late to care Oligohydramnios Fabiola Abraham MD PGY3 Addendum - Attending - Attending Attestation Date/Time: 04/10/20 [id number] I personally evaluated the patient and discussed the management with Dr. Abraham. I agree with the History, Examination, Assessment and Plan documented above.
[2020-04-10] MEDS ORDERED: Ferrous Sulfate 325 MG TAB PO SCH (08:00)
[2020-04-10] MEDS: Prenatal Vitamin 1 TAB PO SCH (08:54)
[2020-04-10] MEDS: Docusate Calcium (SURFAK) 240 MG CAP PO SCH (08:54)
[2020-04-10 12:12] VITALS: BP 102/56
--- NOTE | 2020-04-16 04:41 | PQF ---
CLINICAL DOCUMENTATION CLARIFICATION FORM: Dear : Dioni Jain Date / Time: 04/16/2020439 Please exercise your independent, professional judgment in responding to the clarification form. Clinical indicators are provided on the bottom of this form for your review ___ Final Diagnosis on the Pathology report: Acute Chorioamnionitis Clarification of Pathology report: Please check appropriate box(es): [ ] Agree w the pathology finding of: Acute Chorioamnionitis [ ] Other explanation of pathology findings (please specify) [ x ] Other diagnosis: I was not the delivering doctor - please review the chart. [ ] Unable to determine Physician Signature: Date/Time: For continuity of documentation, please document condition throughout progress notes and discharge summary. Thank You. To be completed by CDI/Coding staff for physician review: Present Clinical Indicators - Signs / Symptoms / Labs Results and Location in Medical Record [X] Acute Chorioamnionitis and pigmented macrophages Pathology report p1 04/12 Dr Jean [X] BP 107/51, Pulse 78, Resp 18, Temp 98.5 Vital signs 04/08 [X] WBC 13.0, RBC 3.13, Hgb 9.8, Hct 28.0 Laboratory 04/09 Present Risk Factors Results and Location in Medical Record [X] 40 weeks of gestation H&P p1 04/07 Dr Sibley [X] Oligohydramnios H&P p4 04/07 Dr Sibley [X] Anemia on H&P p4 04/07 Dr Sibley [X] s/p low-transverse CS Operative note 04/08 Dr Mccullough Present Treatments Results and Location in Medical Record [X] IV Zithromax 500 mg AUG 12 [X] IV Cefazolin 2 gm AUG 12 [X] IV Lactated Ringer 1L AUG 12 CDS/Digital Account Manager Signature: Chastity Badillo Phone #: [phone] Date/Time: 04/16/2020439 This is a permanent part of the [facility] Record [facility]
--- NOTE | 2020-04-19 16:44 | PQF ---
CLINICAL DOCUMENTATION CLARIFICATION FORM: Dear : Connor Mccullough Date / Time: 04/19/20201642 Please exercise your independent, professional judgment in responding to the clarification form. Clinical indicators are provided on the bottom of this form for your review ___ Final Diagnosis on the Pathology report: Acute Chorioamnionitis Clarification of Pathology report: Please check appropriate box(es): [ xxxx ] Agree w the pathology finding of: Acute Chorioamnionitis [ ] Other explanation of pathology findings (please specify) [ ] Other diagnosis [ ] Unable to determine Physician Signature: Date/Time: For continuity of documentation, please document condition throughout progress notes and discharge summary. Thank You. To be completed by CDI/Coding staff for physician review: Present Clinical Indicators - Signs / Symptoms / Labs Results and Location in Medical Record [X] Acute Chorioamnionitis and pigmented macrophages Pathology report p1 04/12 Dr Jean [X] BP 107/51, Pulse 78, Resp 18, Temp 98.5 Vital signs 04/08 [X] WBC 13.0, RBC 3.13, Hgb 9.8, Hct 28.0 Laboratory 04/09 Present Risk Factors Results and Location in Medical Record [X] 40 weeks of gestation H&P p1 04/07 Dr Sibley [X] Oligohydramnios H&P p4 04/07 Dr Sibley [X] Anemia on H&P p4 04/07 Dr Sibley [X] s/p low-transverse CS Operative note 04/08 Dr Mccullough Present Treatments Results and Location in Medical Record [X] IV Zithromax 500 mg AUG 12 [X] IV Cefazolin 2 gm AUG 12 [X] IV Lactated Ringer 1L AUG 12 CDS/Piping Design Specialist Signature: Chastity Badillo Phone #: ext [phone] Date/Time: 04/19/20201642 This is a permanent part of the Medical Record [facility]
== END 2020-04-10 12:05 | disposition home or self-care (01) | DRG 786 ==
LOC: L&D/OP 10:32 → L&D 12:53 → 3SW 04-08 22:08
PROVIDERS: ADMIT Emergency Medicine; ATTEND Emergency Medicine
PROC: 10D00Z1 Extraction of Products of Conception, Low, Open Approach (ICD-10-PCS; principal; 2020-04-08)
PROC: 3E0P7VZ Introduction of Hormone into Female Reproductive, Via Natural or Artificial Opening (ICD-10-PCS; 2020-04-08)
PROC: 3E033VJ Introduction of Other Hormone into Peripheral Vein, Percutaneous Approach (ICD-10-PCS; 2020-04-08)
PROC: 10907ZC Drainage of Amniotic Fluid, Therapeutic from Products of Conception, Via Natural or Artificial Opening (ICD-10-PCS; 2020-04-08)
PROC: 4A1HXCZ Monitoring of Products of Conception, Cardiac Rate, External Approach (ICD-10-PCS; 2020-04-08)
DX: O36.8130 Decreased fetal movements, third trimester, not applicable or unspecified (principal); O41.1230 Chorioamnionitis, third trimester, not applicable or unspecified; O41.03X0 Oligohydramnios, third trimester, not applicable or unspecified; Z3A.40 40 weeks gestation of pregnancy; Z37.0 Single live birth; O99.02 Anemia complicating childbirth; D64.9 Anemia, unspecified; Z20.828 Contact with and (suspected) exposure to other viral communicable diseases; O64.0XX0 Obstructed labor due to incomplete rotation of fetal head, not applicable or unspecified; O76 Abnormality in fetal heart rate and rhythm complicating labor and delivery; O62.1 Secondary uterine inertia
CPT/HCPCS: 36415; 51702; 76815; 82805; 85027; 86780; 86850; 86900; 86901; 87340; 87635; 88307; 99285; J1100; J1885; J2001; J2250; J2270; J2405; J3010; J3490; Q0163; U0003